=== PATIENT | female | born 1970 | race Caucasian/White ===

== ENCOUNTER 2017-08-10 13:46 | Emergency (ER) | payer BC ==
[2017-08-10 14:02] VITALS: BP 135/83; PULSE 74; RESP 18; TEMP 98.5
--- NOTE | 2017-08-10 14:28 | ED ---
General Adult HPI - General Chief complaint: Extremity Injury, Lower Stated complaint: Leg pain Time Seen by Provider: 08/10/17 14:06 Source: patient, RN notes reviewed Mode of arrival: ambulatory Limitations: no limitations - History of Present Illness Initial comments: This is a 47-year-old female who presents to the emergency department with chief complaint of right calf pain. Patient states that last Saturday she was walking up a flight of steps and suddenly experienced right calf pain. She feels like she tore her calf muscle. On Saturday she was running down a set of stairs and felt a pop in her right calf. She was unable to bear weight for a couple of days. Then yesterday, patient developed pitting edema of the right lower extremity. She states that she has noticed some bruising and tenderness over the arenas as well as the calf. He states that she has pain with plantar flexion. Denies any other injuries. She states that she has recently traveled , but has only spent approximately 2 hours in the car at a time. She denies oral control but states that she is a current smoker. Denies fever, chills , chest pain, shortness of breath, abdominal pain, nausea or vomiting, constipation or diarrhea, dysuria or hematuria, numbness or tingling, headache or vision changes. - Related Data Home Medications Medication Instructions Recorded Confirmed Multivitamins, Thera [Multivitamin 1 tab PO DAILY 08/10/17 08/10/17 (formulary)] metroNIDAZOLE 1% GEL [Metrogel 1%] 1 applic TOPICAL DAILY PRN 08/10/17 08/10/17 Allergies Allergy/AdvReac Type Severity Reaction Status Date / Time No Known Allergies Allergy Verified 08/10/17 14:08 Review of Systems ROS Statement: Those systems with pertinent positive or pertinent negative responses have been documented in the HPI. ROS Other: All systems not noted in ROS Statement are negative. Past Medical History Past Medical History: No Reported History History of Any Multi-Drug Resistant Organisms: None Reported Past Surgical History: Section, Tonsillectomy, Tubal Ligation, Uterine Ablation Past Psychological History: No Psychological Hx Reported Smoking Status: Current every day smoker Past Alcohol Use History: Occasional Past Drug Use History: None Reported General Exam - General Exam Comments Initial Comments: General: Awake and alert, well-developed; in no apparent distress. HEENT: Head atraumatic, normocephalic. Pupils are equal, round and reactive to light. Extraocular movements intact. Oropharynx moist without erythema or exudate. Neck: Supple. Normal ROM. Cardiovascular: Regular rate and rhythm. No murmurs, rubs or gallops. Chest symmetrical. Respiratory: Lungs clear to auscultation bilaterally. No wheezes, rales or rhonchi. Normal respiratory effort with no use of accessory muscles. Musculoskeletal: Normal ROM of right ankle. Pain is elicited with plantar and dorsiflexion. 1+ pitting edema of the right distal lower extremity. Bruising noted at distal calf. No erythema or warmth noted. There is tenderness on palpation soft tissue medial knee. Sensation is intact. Pedal pulses are 2+ equal and palpable bilaterally. Skin: [place], warm and dry without rashes or lesions. Neurological: Alert and oriented x3. CN II-XII grossly intact. Speech is fluent and answers are appropriate. No focal neuro deficits. Psychiatric: Normal mood and affect. No overt signs of depression or anxiety noted. Limitations: no limitations Course Vital Signs 08/10/17 13:57 Temperature 98.5 F Pulse Rate 74 Respiratory 18 Rate Blood Pressure 135/83 O2 Sat by Pulse 100 Oximetry Medical Decision Making - Medical Decision Making This is a [id number] female who presents to the emergency department with chief complaint of right calf pain. Ultrasound venous Doppler revealed no evidence for an acute DVT. Discussed these findings with patient. Patient declines xray. She is in no acute distress at this time. She'll be discharged home with recommendation to [facility] with [facility]. Patient is in agreement with plan and voices understanding. All questions were answered. - Radiology Data Radiology results: report reviewed Ultrasound venous Doppler right lower extremity Impression: No ultrasound evidence for acute DVT in the right lower extremity. Disposition Clinical Impression: Pain and swelling of right lower extremity Disposition: HOME SELF-CARE Condition: Good Instructions: Leg Pain (ED) Additional Instructions: [facility] with [facility] within 1-2 days. Please follow up with primary care provider within 1-2 days. Return to emergency department if symptoms should worsen or any concerns arise. Referrals: Mirella Floyd MD [Primary Care Provider] - 1-2 days Mauro Adams PAC [PHYSICIAN PROFESSOR OF ENGLISH] - 1-2 days Time of Disposition: 15:23
--- NOTE | 2017-08-10 14:53 | US ---
EXAMINATION TYPE: US venous doppler duplex LE RT DATE OF EXAM: 08/10/2017 2:48 PM COMPARISON: NONE CLINICAL HISTORY: Pain. right calf pain when walking down stairs, swelling, no h/o dvt SIDE PERFORMED: TECHNIQUE: The lower extremity deep venous system is examined utilizing real time linear array sonog sintia with graded compression, doppler sonography and color-flow sonography. VESSELS IMAGED: External Iliac Vein (EIV) Common Femoral Vein Deep Femoral Vein Greater Saphenous Vein * Femoral Vein Popliteal Vein Small Saphenous Vein * Proximal Calf Veins (* superficial vessels) Right Leg: Appears negative for DVT Grayscale, color doppler, spectral doppler imaging performed of the deep veins of the right lower ext remity. There is normal flow, compressibility, vascular waveforms. IMPRESSION: No ultrasound evidence for acute DVT in the right lower extremity.
== END 2017-08-10 15:35 | disposition home or self-care (01) ==
LOC: EC 13:46
DX: M79.604 Pain in right leg (principal); M79.89 Other specified soft tissue disorders; F17.200 Nicotine dependence, unspecified, uncomplicated; Z79.899 Other long term (current) drug therapy; Y93.01 Activity, walking, marching and hiking
CPT/HCPCS: 99283

== ENCOUNTER → 2023-08-23 | Outpatient (CLI) | payer BC ==
--- NOTE | 2023-08-23 13:54 | USB ---
Reason for Exam: Follow-up at short interval from prior study. Patient History: Menarche at age 13. First Full-Term at age 21. Perimenopausal. Risk Values: Helen 5 year model risk: 0.9%. NCI Lifetime model risk: 6.9%. Prior Study Comparison: 10/31/2012 Bilateral Diagnostic Mammogram, [facility]. 03/22/2016 Bilateral Screening Mammogram, [facility]. 11/16/2022 Bilateral US breast limited BILAT, [facility]. 11/16/2022 Bilateral MG 3D diag mammo w/cad REBECA, [facility]. Findings: The axilla of the right breast and the retroareolar of the right breast were scanned. There are prominent ducts are redemonstrated some of which demonstrate internal debris. Continued follow-up at bilateral mammography advised.. Overall Assessment: Probably benign, BI-RAD 3 Management: Diagnostic Mammogram of both breasts in 3 months. A clinical breast exam by your physician is recommended on an annual basis and results should be correlated with mammographic findings. This exam should not preclude additional follow-up of suspicious palpable abnormalities. Results were given to the patient verbally at the time of exam. Electronically signed and approved by: Javy Cabrales M.D. Radiologis
== END | disposition home or self-care (01) ==
LOC: RADUSWWP 13:29
PROVIDERS: ATTEND Obstetrics & Gynecology
DX: R92.8 Other abnormal and inconclusive findings on diagnostic imaging of breast (principal)

== ENCOUNTER → 2023-09-27 | Day surgery (SDC) | payer BC ==
[~2023-09-27] MED LIST: LIDOCAINE 1% INJ 10MG/ML (20 ML MDV) ONE; PROPOFOL 10 MG/ML 20 ML VIAL IV ONE
[2023-09-27] MEDS: LACTATED RINGERS 1,000 ML IV SCH (12:08)
[2023-09-27 12:34] VITALS: TEMP 97
--- NOTE | 2023-09-27 12:41 | P.PCN ---
Date of Procedure: 09/27/23 Procedure(s) Performed: BRIEF HISTORY: Patient is a 53-year-old pleasant white female scheduled for an elective colonoscopy as a part of screening for colon cancer. PROCEDURE PERFORMED: Colonoscopy with snare polypectomy. PREOPERATIVE DIAGNOSIS: Screening for colon cancer. IV sedation per Anesthesia. PROCEDURE: After informed consent was obtained, the patient, was brought into the endoscopy unit. IV sedation was administered by Anesthesia under continuous monitoring. Digital rectal examination was normal. Initially the Olympus CF-160 flexible video colonoscope was then inserted in the rectum, gradually advanced into the cecum without any difficulty. Careful examination was performed as the scope was gradually being withdrawn. Ileocecal valve and the appendiceal orifice were visualized and appeared normal. Prep was excellent. Mucosa of the cecum, ascending colon, transverse colon, descending colon, again normal. The sigmoid: There was a 1 cm polyp removed by snare polypectomy. Scattered sigmoid diverticulosis seen. Rest of the sigmoid colon, and rectum appeared normal. Retroflexion was performed in the rectum and small internal hemorrhoids were seen. The patient tolerated the procedure well. IMPRESSION: 1 cm distal sigmoid colon polyp at 30 cm from the anal verge status post polypectomy Scattered sigmoid diverticulosis Small internal hemorrhoids RECOMMENDATIONS: Findings of this examination were discussed with the patient as well as family. Was advised to follow with the biopsy results. If the biopsy results adenoma she can have a repeat colonoscopy in 5 years.
[2023-09-27 13:10] VITALS: BP 135/89; PULSE 72; RESP 14
== END ==
LOC: ORWHC2ENDO 11:15
PROVIDERS: ATTEND Internal Medicine Gastroenterology
DX: Z12.11 Encounter for screening for malignant neoplasm of colon (principal); K63.5 Polyp of colon; K57.30 Diverticulosis of large intestine without perforation or abscess without bleeding; K64.8 Other hemorrhoids; Z98.891 History of uterine scar from previous surgery; Z90.89 Acquired absence of other organs; Z98.51 Tubal ligation status; Z98.890 Other specified postprocedural states; Z79.899 Other long term (current) drug therapy
CPT/HCPCS: 88305; 45385; J2001; J2704

== ENCOUNTER → 2024-09-11 | Outpatient (CLI) | payer BC ==
--- NOTE | 2024-09-11 11:52 | MM ---
Reason for Exam: Follow-up at short interval from prior study. Last mammogram was performed 1 year(s) and 9 month(s) ago. Patient History: Menarche at age 13. First Full-Term at age 21. Perimenopausal. Risk Values: Helen 5 year model risk: 1.0%. NCI Lifetime model risk: 6.7%. Prior Study Comparison: 10/31/2012 Bilateral Diagnostic Mammogram, [facility]. 03/22/2016 Bilateral Screening Mammogram, [facility]. 11/16/2022 Bilateral US breast limited BILAT, [facility]. 11/16/2022 Bilateral MG 3D diag mammo w/cad REBECA, [facility]. 08/23/2023 Bilateral US breast limited RT, [facility]. Tissue Density: There are scattered areas of fibroglandular density. Findings: Analyzed By CAD. Stable dilated duct in the right RCC view 39 mm and another measuring 8 mm No new suspicious masses, calcifications or distortions. Overall Assessment: Benign, BI-RAD 2 Management: Screening Mammogram of both breasts in 1 year. Results were given to the patient verbally at the time of exam. Patient should continue monthly self-breast exams. A clinical breast exam by your physician is recommended on an annual basis. This exam should not preclude additional follow-up of suspicious palpable abnormalities. Note on Helen scores and lifetime risk: 1. A Helen score greater than 3% is considered moderate risk. If this is the case, consider specialist referral to assess eligibility for a risk reducing agent. 2. If overall lifetime risk for the development of breast cancer is 20% or higher, the patient may qualify for future screening with alternating mammogram and breast MRI. [facility], , 09/11/2024 11:49 AM. Electronically signed and approved by: Gama Coats DO
== END | disposition home or self-care (01) ==
LOC: RADMAMWWP 10:59
PROVIDERS: ATTEND Family Medicine
DX: R92.8 Other abnormal and inconclusive findings on diagnostic imaging of breast (principal); N64.4 Mastodynia; R92.323 Mammographic fibroglandular density, bilateral breasts
CPT/HCPCS: 77062; 77066